=== PATIENT | male | born 1960 | race Caucasian/White ===

== ENCOUNTER 2020-12-21 02:14 | Emergency (ER) | payer MEDICARE ==
[~2020-12-21] VITALS: Ht 185.4 cm; Wt 117.9 kg
[2020-12-21] MEDS ORDERED: ZESTRIL40 M1 PO (03:07)
[2020-12-21 03:10] LABS: Calcium, Ionized (POC) 1.15 mmol/L (1.10-1.46); Chloride (POC) 102 mmol/L (98-108); Creatinine (POC) 1.1 mg/dL (0.8-1.3); Glucose (ISTAT POC) 104 mg/dL (70-99); Hemoglobin (POC) 16.3 g/dL (13.5-17.5); Potassium (POC) 3.9 mmol/L (3.5-5.5); Sodium (POC) 139 mmol/L (135-148); Total CO2 (POC) 25 mmol/L (21-32)
== END 2020-12-21 05:39 | disposition home or self-care (01) ==
LOC: ER 02:14
PROVIDERS: Emergency Medicine
DX: U07.1 COVID-19 (principal); R19.5 Other fecal abnormalities; F17.200 Nicotine dependence, unspecified, uncomplicated
CPT/HCPCS: 36415; 80047; 82272; 85014; 99283-25; A9270; M0243; Q0243

== ENCOUNTER 2021-03-29 07:16 | Emergency (ER) | payer MEDICARE ==
[~2021-03-29] VITALS: Ht 185.4 cm; Wt 124.7 kg
[~2021-03-29 07:16] MED LIST: ZESTRIL40 M1 PO
[2021-03-29] MEDS ORDERED: HYDACE10B PO (08:33)
== END 2021-03-29 08:44 | disposition home or self-care (01) ==
LOC: ER 07:16
DX: S32.2XXA Fracture of coccyx, initial encounter for closed fracture (principal); I10 Essential (primary) hypertension; F17.210 Nicotine dependence, cigarettes, uncomplicated; Z79.899 Other long term (current) drug therapy; W17.89XA Other fall from one level to another, initial encounter
CPT/HCPCS: 72170; 72220; 99283-25; A9270

== ENCOUNTER 2022-01-05 09:27 | Emergency (ER) | payer MEDICARE ==
[~2022-01-05] VITALS: Ht 185.4 cm; Wt 120.2 kg
[~2022-01-05 09:27] MED LIST changes: +HYDACE10B PO
[2022-01-05 11:07] LABS: BASOPHILS ABSOLUTE AUTO 0.14 K/mm3 (0.00-0.23); BASOPHILS PERCENT AUTO 2 % (0-2); EOSINOPHILS ABSOLUTE AUTO 0.11 K/mm3 (0.00-0.68); EOSINOPHILS PERCENT AUTO 1 % (0-6); Hematocrit 45.2 % (37.0-53.0); Hemoglobin 15.4 g/dL (13.5-17.5); IMMATURE GRAN ABSOLUTE AUTO 0.04 K/mm3 (0.00-0.10); IMMATURE GRAN PERCENT AUTO 0 % (0-1); LYMPHOCYTES ABSOLUTE AUTO 1.31 K/mm3 (0.84-5.20); LYMPHOCYTES PERCENT AUTO 14 % (21-46); MONOCYTES ABSOLUTE AUTO 0.87 K/mm3 (0.16-1.47); MONOCYTES PERCENT AUTO 9 % (4-13); Mean Corpuscular HGB 35.4 pg (26.0-34.0); Mean Corpuscular HGB Conc 34.1 g/dL (31.5-36.5); Mean Corpuscular Volume 104 fL (80-100); Mean Platelet Volume 10.3 fL (9.1-12.4); NEUTROPHILS ABSOLUTE AUTO 6.77 K/mm3 (1.96-9.15); NEUTROPHILS PERCENT AUTO 73 % (41-73); Platelet Count 267 K/mm3 (150-400); RDW Coefficient Variation 13.4 % (11.7-14.2); RDW Standard Deviation 52.1 fL (35.1-46.3); Red Blood Cell Count 4.35 M/mm3 (4.30-5.90); White Blood Cell Count 9.24 K/mm3 (4.00-11.30)
[2022-01-05 11:29] LABS: Albumin, Blood 3.8 g/dL (3.4-5.0); Bilirubin, Total 1.7 mg/dL (0.1-1.0); Bun/Creatinine Ratio 15.7 (12.0-20.0); Calcium, Blood 8.8 mg/dL (8.5-10.1); Creatinine, Blood 0.89 mg/dL (0.60-1.20); Globulin, Blood 3.8 g/dL (2.2-4.0); Potassium, Blood 4.4 mmol/L (3.5-5.5); Total Protein, Blood 7.6 g/dL (6.4-8.2)
[2022-01-05 11:43] LABS: Influenza A, PCR NEGATIVE (NEGATIVE); Influenza B, PCR NEGATIVE (NEGATIVE); Resp Syncytial Virus, PCR NEGATIVE (NEGATIVE); SARS-Cov-2 (COVID-19) PCR, MMC NEGATIVE (NEGATIVE)
== END 2022-01-05 14:15 | disposition home or self-care (01) ==
LOC: ER 09:27
PROVIDERS: Student in an Organized Health Care Education/Training Program
DX: R06.02 Shortness of breath (principal); F41.9 Anxiety disorder, unspecified; F17.210 Nicotine dependence, cigarettes, uncomplicated; F10.20 Alcohol dependence, uncomplicated; I10 Essential (primary) hypertension; Z79.899 Other long term (current) drug therapy; Z20.822 Contact with and (suspected) exposure to COVID-19
CPT/HCPCS: 0241U; 71046; 80053; 84484; 85025; 93005; 93010

== ENCOUNTER 2022-01-20 17:44 | Inpatient (IN) | payer MEDICARE ==
[~2022-01-20] VITALS: Ht 185.4 cm; Wt 122.5 kg
[2022-01-20 18:18] LABS: BASOPHILS PERCENT AUTO 1 % (0-2); EOSINOPHILS ABSOLUTE AUTO 0.06 K/mm3 (0.00-0.68); EOSINOPHILS PERCENT AUTO 1 % (0-6); Hemoglobin 14.1 g/dL (13.5-17.5); IMMATURE GRAN ABSOLUTE AUTO 0.03 K/mm3 (0.00-0.10); IMMATURE GRAN PERCENT AUTO 0 % (0-1); LYMPHOCYTES ABSOLUTE AUTO 1.27 K/mm3 (0.84-5.20); LYMPHOCYTES PERCENT AUTO 17 % (21-46); MONOCYTES ABSOLUTE AUTO 0.89 K/mm3 (0.16-1.47); MONOCYTES PERCENT AUTO 12 % (4-13); Mean Corpuscular HGB 36.2 pg (26.0-34.0); Mean Corpuscular HGB Conc 34.4 g/dL (31.5-36.5); Mean Corpuscular Volume 105 fL (80-100); Mean Platelet Volume 10.8 fL (9.1-12.4); NEUTROPHILS ABSOLUTE AUTO 5.02 K/mm3 (1.96-9.15); NEUTROPHILS PERCENT AUTO 68 % (41-73); Platelet Count 253 K/mm3 (150-400); RDW Coefficient Variation 13.5 % (11.7-14.2); RDW Standard Deviation 52.7 fL (35.1-46.3); White Blood Cell Count 7.37 K/mm3 (4.00-11.30)
[2022-01-20 18:34] LABS: Albumin, Blood 3.3 g/dL (3.4-5.0); Bilirubin, Total 1.3 mg/dL (0.1-1.0); Bun/Creatinine Ratio 19.8 (12.0-20.0); Calcium, Blood 9.1 mg/dL (8.5-10.1); Creatinine, Blood 1.01 mg/dL (0.60-1.20); Globulin, Blood 3.3 g/dL (2.2-4.0); Potassium, Blood 4.5 mmol/L (3.5-5.5); Total Protein, Blood 6.6 g/dL (6.4-8.2)
[2022-01-20] MEDS ORDERED: LISI20 PO (20:21)
[2022-01-20 20:39] LABS: Magnesium, Blood 2.1 mg/dL (1.6-2.4); Thyroid Stimulating Hormone 1.2 uIU/mL (0.360-4.800)
[2022-01-20 21:00] LABS: Influenza A, PCR NEGATIVE (NEGATIVE); Influenza B, PCR NEGATIVE (NEGATIVE); Resp Syncytial Virus, PCR NEGATIVE (NEGATIVE); SARS-Cov-2 (COVID-19) PCR, MMC NEGATIVE (NEGATIVE)
--- NOTE | 2022-01-21 05:17 | NUR ---
NEW ADMIT Patient admitted for BLE edema, SOB, Cough. +2 pitting edema BLE, ABD distended, SOB. Patient reports pain, "tightness" in BLE. Tele in place, Afib tachycardic. Patient anxious, awake most of the night. Reported lately he has felt too panicked, too sleep, d/t SOB, he cannot lay flat in bed. Does not have a recliner at home. Patient quit drinking 1 week ago, no s/sx of alcohol withdrawal. Patient anxious tonight d/t SOB. Ativan given for anxiety, PRN effective patient went to sleep. Systolic BP>150 & Diastolic BP>110s. IV Hydralazine given PRN. Troponins, BNP elevated on admission. ECHO, EKG ordered today.
[2022-01-21 05:45] LABS: Bun/Creatinine Ratio 21.8 (12.0-20.0); Calcium, Blood 8.3 mg/dL (8.5-10.1); Creatinine, Blood 0.82 mg/dL (0.60-1.20); Potassium, Blood 3.9 mmol/L (3.5-5.5)
--- NOTE | 2022-01-21 17:40 | NUR ---
SHIFT SUMMARY PLEASANT 61-YEAR-OLD MALE, A&O X4, INDEPENDENT, THOUGH BEDREST WITH BATHROOM MENTIONED FOR LEG EDEMA. SCDS PLACED THIS SHIFT. PTN DID HAVE HR INTO 130'S STARTING 10 PM YESTERDAY, AND REPORTED TO BE 110-[address] AMIN CONTACTED, MEDICATION CHANGES MADE. PTN DID GET SOME AGITATED THIS SHIFT WITH COMPLAINT OF OATES, AND GIVEN TYLENOL, WHICH SEEMED TO RESOLVE IT. ALSO GIVEN ANTI-ANXIETY MEDICATION NEEDED. CONTINUE TO MONITOR.
[2022-01-22 05:48] LABS: Bun/Creatinine Ratio 22.8 (12.0-20.0); Calcium, Blood 8.8 mg/dL (8.5-10.1); Creatinine, Blood 0.84 mg/dL (0.60-1.20); Potassium, Blood 3.8 mmol/L (3.5-5.5)
--- NOTE | 2022-01-22 06:07 | NUR ---
SHIFT LUISLINDAJACQUEILNLesley 61 YR M ADMITTED ON 01/20/22 FOR CHF. NO ACUTE CHANGES THIS SHIFT. PT IS BECOMING INCREASINGLY AGITATED AND IS COMPLAINING AND CURSING ABOUT HAVING TO WEAR THE TELE MONITOR AND SCD'S. HE INSISTED ON TAKING THE SCD'S OFF WHEN HE WENT TO BED AT NIGHT AND THIS NURSE ADVISED HIM THAT IT WOULD BE BENEFICIAL FOR HIM TO CONTINUE WEARING THEM IN THE A.M. HE STATES THAT HE IS FEELING CLOSTROPHOBIC FROM BEING IN HIS ROOM ALL THE TIME. HE WAS GIVEN ATIVAN FOR ANXIETY PER EMAR.
--- NOTE | 2022-01-22 13:35 | NUR ---
Pt resting in bed labored breathing, ahed and pale some trouble tracking conversation due to symptoms and discomfort. pt has been having more headaches and anexiety, much more abdominal pain and distress. He has been having some chest pains at home. he dienies having falls. He is very aggitated and fearful and uncomfortable. We had therputic onversation reassured him he is safe and we will help him through. updated physician and nursing on his needs. will follow up. He is to ill and distrught to address a polst or plan of care . Did briefly review getting him home health he is ok with [facility] and he is willing to go to [facility] for a primary care.
--- NOTE | 2022-01-22 16:46 | NUR ---
SHIFT SUMMARY PT SLEEPING AT START OF SHIFT. WOKE EASILY FOR CARE. USING URINAL AT BS AT START OF SHIFT D/T WEAKNESS AND SOB. PT UP TO BTHRM EACH TIME LATER IN THE DAY. PT ADMITTED WITH NEW ONSET OF A-FIB WITH RVR AND CHF. PT RECEIVING LASIX. DR AMIN IN TO SEE PT THIS AM. NEW ORDERS PLACED. MEDICATIONS ADJUSTED AND FLUID RESTRICTION ADDED. PALLIATIVE CARE RN IN TO SEE PT A FEW TIMES TODAY, EVEN BRINGING PT SOME READING GLASSES. PT MEDICATED PER EMAR AND RESTED WELL THIS AFTERNOON. ADDITIONAL LASIX AND BP MEDS TO BE GIVEN THIS EVENING. RESTING QUIETLY AT THIS TIME. CALL LT IN REACH.
--- NOTE | 2022-01-23 05:59 | NUR ---
NIGHTSHIFT SUMMARY Patient AOx4, independent to bathroom. Fluid restriction ordered, patient only had 200mL fluid left to drink this shift. Patient reported OATES and anxiety, Tylenol & Ativan given, PRN effective. BLE edematous, pt reports tightness/discomfort. Patient slept comfortably, arouses easily to voice. Tele Afib rhythm- 105bpm. Librium given once this morning, PRN effective. Vitals stable, saturations 90% RA.
--- NOTE | 2022-01-23 14:51 | NUR ---
SHIFT SUMMARY PT RESTING QUIETLY DURING SHIFT REPORT, BUT WOKE SHORTLY AFTER, GETTING UP TO CHAIR AT BS. PT SEEMS TO BE A LITTLE BETTER AGAIN TODAY, THAN YESTERDAY. IMPROVING SLOWLY. PT STATED THAT HE IS BREATHING ALOT BETTER THAN WHEN HE FIRST CAME IN. BP AND HR STILL ELEVATED; SEE CHART. DR ALLISON IN TO SEE PT THIS AM; MEDICATIONS ADJUSTED AGAIN TODAY. PT WANTING TO GO HOME TODAY, BUT WILL STAY FOR AT LEAST ANOTHER DAY OR TWO, PER DR ALLISON. PT REMAINS INDEPENDENT IN RM AND TO BTHRM. REMAINS ON FLUID RESTRICTION; SEE ORDERS. DENIES FURTHER NEEDS. CALL LT IN REACH.
--- NOTE | 2022-01-24 05:28 | NUR ---
SHIFT SUMMARY PT AOX3. FORGETFUL AT TIMES. NO ACUTE CHANGES. PT HAS MILD EDEMA BLE. VSS. DENIES CHEST PAIN. MILD SOB WITH COUGH. LUNGS HAVE FINE CRACKLES. ENC DEEP BREATHING EXERCISE. TELE: AFIB W/ BBB, 103. FLUID RESTRICTION 1L DAILY. PROVIDE PT EDUCATION WITH DISEASE PROCESS AND CURRENT ILLNESS. TALKED ABOUT LIFE STYLE CHANGE AND DIET. INDEPENDENT IN ROOM . CALL LIGHT WITHIN REACH. WILL PROVIDE REPORT TO ONCOMING NURSE.
[2022-01-24 05:31] LABS: Hematocrit 44.2 % (37.0-53.0); Hemoglobin 14.7 g/dL (13.5-17.5); Mean Corpuscular HGB 35.1 pg (26.0-34.0); Mean Corpuscular HGB Conc 33.3 g/dL (31.5-36.5); Mean Corpuscular Volume 106 fL (80-100); Platelet Count 278 K/mm3 (150-400); RDW Coefficient Variation 13.1 % (11.7-14.2); RDW Standard Deviation 51.8 fL (35.1-46.3); Red Blood Cell Count 4.19 M/mm3 (4.30-5.90); White Blood Cell Count 9.26 K/mm3 (4.00-11.30)
[2022-01-24 05:58] LABS: Albumin, Blood 3.1 g/dL (3.4-5.0); Albumin/Globulin Ratio 0.9 (0.8-1.8); Bilirubin, Total 1.2 mg/dL (0.1-1.0); Calcium, Blood 8.8 mg/dL (8.5-10.1); Globulin, Blood 3.5 g/dL (2.2-4.0); Magnesium, Blood 1.9 mg/dL (1.6-2.4); Potassium, Blood 3.6 mmol/L (3.5-5.5); Total Protein, Blood 6.6 g/dL (6.4-8.2)
[2022-01-24] MEDS ORDERED: NORVASC5 MG PO (11:45)
[2022-01-24] MEDS ORDERED: BUSP10 PO (11:45)
[2022-01-24] MEDS ORDERED: MIRT30 PO (11:46)
[2022-01-24] MEDS ORDERED: NICO21TP TOP (11:46)
[2022-01-24] MEDS ORDERED: METO50ER PO (11:46)
[2022-01-24] MEDS ORDERED: XARELTO20 MG PO (11:47)
[2022-01-24] MEDS ORDERED: SPIR25 PO (11:47)
[2022-01-24] MEDS ORDERED: FURO20 PO (11:47)
[2022-01-24] MEDS ORDERED: METO25 PO (11:48)
--- NOTE | 2022-01-24 13:43 | NUR ---
SHIFT SUMMARY- PT IRRITATBLE ABOUT D/C PACE. VSS. INDEPENDANT IN ROOM. CALL LIGHT IN REACH. D/C PT LEFT WITH EDUCATION PACKET, MEDICATION PAPERWORK, AND ALL BELONGINGS IN HAND. PT LEFT ON FOOT REFUSED WHEELCHAIR PROVIDED. PT PULLED OWN IV PRIOR TO RN REMOVAL. RN PLACED BANDAGE PRECAUTION. PT D/C TO HOME.
== END 2022-01-24 12:20 | disposition home or self-care (01) | DRG 291 ==
LOC: ER 17:44 → MEDS 20:23
PROVIDERS: Emergency Medicine; Internal Medicine; ADMIT Hospitalist
PROC: HZ2ZZZZ Detoxification Services for Substance Abuse Treatment (ICD-10-PCS; principal; 2022-01-20)
DX: I11.0 Hypertensive heart disease with heart failure (principal); I50.23 Acute on chronic systolic (congestive) heart failure; F10.239 Alcohol dependence with withdrawal, unspecified; I48.0 Paroxysmal atrial fibrillation; Z20.822 Contact with and (suspected) exposure to COVID-19; F17.210 Nicotine dependence, cigarettes, uncomplicated; F41.1 Generalized anxiety disorder; J44.9 Chronic obstructive pulmonary disease, unspecified; Z71.41 Alcohol abuse counseling and surveillance of alcoholic; Z79.899 Other long term (current) drug therapy
CPT/HCPCS: 0241U; 36415; 71046; 71275; 74175; 80048; 80053; 83690; 83735; 83880; 84443; 84484; 85025; 85027; 93005; 93010; 93306; 94760; 96374; 96375; 99285-25; A9270; J0360; J1940; J2405; Q9967

== ENCOUNTER 2022-05-22 05:07 | Inpatient (IN) | payer MEDICARE ==
[~2022-05-22] VITALS: Ht 175.3 cm; Wt 124.7 kg
[~2022-05-22 05:07] MED LIST changes: +BUSP10 PO; +FURO20 PO; +LISI20 PO; +METO25 PO; +METO50ER PO; +MIRT30 PO; +NICO21TP TOP; +NORVASC5 MG PO; +SPIR25 PO; +XARELTO20 MG PO
[2022-05-22 05:40] LABS: BASOPHILS ABSOLUTE AUTO 0.12 K/mm3 (0.00-0.23); BASOPHILS PERCENT AUTO 1 % (0-2); EOSINOPHILS ABSOLUTE AUTO 0.14 K/mm3 (0.00-0.68); EOSINOPHILS PERCENT AUTO 2 % (0-6); Hematocrit 32.4 % (37.0-53.0); Hemoglobin 10.8 g/dL (13.5-17.5); IMMATURE GRAN ABSOLUTE AUTO 0.09 K/mm3 (0.00-0.10); IMMATURE GRAN PERCENT AUTO 1 % (0-1); LYMPHOCYTES PERCENT AUTO 25 % (21-46); MONOCYTES ABSOLUTE AUTO 1.01 K/mm3 (0.16-1.47); MONOCYTES PERCENT AUTO 11 % (4-13); Mean Corpuscular HGB 33.4 pg (26.0-34.0); Mean Corpuscular HGB Conc 33.3 g/dL (31.5-36.5); Mean Corpuscular Volume 100 fL (80-100); Mean Platelet Volume 9.6 fL (9.1-12.4); NEUTROPHILS ABSOLUTE AUTO 5.79 K/mm3 (1.96-9.15); NEUTROPHILS PERCENT AUTO 61 % (41-73); NRBC ABSOLUTE 0.02 K/mm3 (0.00-0.02); NRBC Auto 0.2 /100 WBC (0.0-0.2); Platelet Count 355 K/mm3 (150-400); RDW Coefficient Variation 16.5 % (11.7-14.2); RDW Standard Deviation 58.4 fL (35.1-46.3); Red Blood Cell Count 3.23 M/mm3 (4.30-5.90); White Blood Cell Count 9.55 K/mm3 (4.00-11.30)
[2022-05-22 06:01] LABS: Alanine Aminotransfer (ALT/SGP 39 U/L (12-78); Albumin, Blood 2.7 g/dL (3.4-5.0); Albumin/Globulin Ratio 0.6 (0.8-1.8); Alk Phos 114 U/L (50-136); Anion Gap 6 mmol/L (6-16); Aspartate Aminotrans (AST/SGOT 33 U/L (12-37); Bilirubin, Total 0.8 mg/dL (0.1-1.0); Blood Urea Nitrogen 22 mg/dL (8-24); Bun/Creatinine Ratio 23.4 (12.0-20.0); CO2, Blood 26 mmol/L (21-32); Chloride, Blood 106 mmol/L (98-108); Creatinine, Blood 0.94 mg/dL (0.60-1.20); Ethanol (Alcohol), Blood, Med <3 mg/dL; Globulin, Blood 4.5 g/dL (2.2-4.0); Glomerular Filtration Rate 92 (60-); Glucose, Blood 112 mg/dL (70-99); Magnesium, Blood 2.1 mg/dL (1.6-2.4); Potassium, Blood 3.8 mmol/L (3.5-5.5); Sodium, Blood 138 mmol/L (136-145); Total Protein, Blood 7.2 g/dL (6.4-8.2)
--- NOTE | 2022-05-22 17:46 | NUR ---
SHIFT SUMMARY PATIENT ADMITTED AT 0930 FROM ER. PATIENT SETTLED INTO ROOM. PATIENT ORIENTED TO CALL LIGHT AND TV CONTROL. ADMISSION COMPLETE. PATIENT DENIES PAIN, NAUSEA, AND SHORTNESS OF BREATH. PATIENT IS IND IN THE ROOM. PATIENT HAS BILAT LE EDEMA. ECHO WAS COMPLETE THIS SHIFT. PATIENT IS EATING AND DRINKING WELL. PATIENT IS PLEASANT AND COOPERATIVE WITH CARE.
--- NOTE | 2022-05-23 03:34 | NUR ---
SHIFT SUMMARY PATIENT IS ALERT AND ORIENTED. PATIENT HAS NOT HAD ANY ACUTE EVENTS THIS SHIFT. PATIENT HAS BEEN PLEASENT AND COOPERATIVE THIS SHIFT. VITAL SIGNS REVIEWED. PATIENT HAS NOT COMPLAINED OF PAIN, NAUSEA, SOB OR VOMITTING THIS SHIFT. BED IN LOCKED AND LOWEST POSITION. CALL LIGHT IN PLACE. WILL MONITOR UNTIL SHIFT CHANGE.
[2022-05-23 05:42] LABS: BASOPHILS ABSOLUTE AUTO 0.12 K/mm3 (0.00-0.23); BASOPHILS PERCENT AUTO 1 % (0-2); EOSINOPHILS ABSOLUTE AUTO 0.16 K/mm3 (0.00-0.68); EOSINOPHILS PERCENT AUTO 2 % (0-6); Hematocrit 34.2 % (37.0-53.0); Hemoglobin 11.4 g/dL (13.5-17.5); IMMATURE GRAN ABSOLUTE AUTO 0.06 K/mm3 (0.00-0.10); IMMATURE GRAN PERCENT AUTO 1 % (0-1); LYMPHOCYTES ABSOLUTE AUTO 2.02 K/mm3 (0.84-5.20); LYMPHOCYTES PERCENT AUTO 22 % (21-46); MONOCYTES PERCENT AUTO 10 % (4-13); Mean Corpuscular HGB 32.9 pg (26.0-34.0); Mean Corpuscular HGB Conc 33.3 g/dL (31.5-36.5); Mean Corpuscular Volume 99 fL (80-100); Mean Platelet Volume 9.2 fL (9.1-12.4); NEUTROPHILS ABSOLUTE AUTO 5.87 K/mm3 (1.96-9.15); NEUTROPHILS PERCENT AUTO 64 % (41-73); Platelet Count 355 K/mm3 (150-400); RDW Coefficient Variation 16.6 % (11.7-14.2); RDW Standard Deviation 57.3 fL (35.1-46.3); Red Blood Cell Count 3.47 M/mm3 (4.30-5.90); White Blood Cell Count 9.13 K/mm3 (4.00-11.30)
[2022-05-23 06:10] LABS: Albumin/Globulin Ratio 0.7 (0.8-1.8); Bilirubin, Total 1.7 mg/dL (0.1-1.0); Bun/Creatinine Ratio 22.5 (12.0-20.0); Calcium, Blood 8.7 mg/dL (8.5-10.1); Creatinine, Blood 0.93 mg/dL (0.60-1.20); Globulin, Blood 4.2 g/dL (2.2-4.0); Magnesium, Blood 2.2 mg/dL (1.6-2.4); Potassium, Blood 3.9 mmol/L (3.5-5.5); Total Protein, Blood 7.2 g/dL (6.4-8.2)
--- NOTE | 2022-05-23 09:45 | NUR ---
PATIENTS AGGRESSION INCREASED, PACING IN HALLS SAYSING "FUCK THIS PLACE" PATIENT EDUCATED ON MEDICAL NEEDS TO STAY AT THE HOSPITAL AND AMA OPTIONS. REPORTED TO BLACKING WHEEL TENDER PHIL AND DR INTERIANO. PATIENT REPORTS HE IS STAYING NOW. PATIENT CONITNUES TO ARGUE ABOUT CARE AND SAYS "I DONT NEED TO BE HERE". PATIENT SLAMBED DOOR SHUT
--- NOTE | 2022-05-23 11:39 | NUR ---
PATIENT RESTING IN BED, NO DISTRESS, RESPIRATIONS EVEN AND NONLABORED
--- NOTE | 2022-05-23 16:12 | NUR ---
PATIENT WAITING AT DOOR, "WHERE IS THE LIQUID MEDICATIONS i WAS SOPOSE TO HAVE" PATIENT EDUCATED BY THIS RN DONATO THAT MEDICATION WAS GIVEN IN THE PO FORM AND THAT MORE DIURETICS WILL BE GIVEN AT 1800, PATIENT SLAMBED THE DOOR, CONTACTED CHARGE NURSE, PATIENT REFUSED TO SUGN THE AMA PAPER WORK, PATIENT ALREADY PULLED OUT IV, IV INTACT, TANO RN WITNESSED REFUSAL TO SIGN AMA, IV OUT AND PATIENT UNCONSOLABLE. PATIENT AMBULATED OUT OF HOSPITAL, STEADY GAIT
--- NOTE | 2022-05-23 16:16 | NUR ---
DR FRAZIER NOTIFIED, SECURITY NOTIFIED PATIENT LEFT PERSONAL BELONGING AND THEY ARE AT THE ACC DESK.
== END 2022-05-23 16:05 | disposition left against medical advice (07) | DRG 291 ==
LOC: ER 05:07 → MEDS 07:50
PROVIDERS: Emergency Medicine; ADMIT Student in an Organized Health Care Education/Training Program
DX: I11.0 Hypertensive heart disease with heart failure (principal); I50.23 Acute on chronic systolic (congestive) heart failure; I48.20 Chronic atrial fibrillation, unspecified; K76.0 Fatty (change of) liver, not elsewhere classified; F17.210 Nicotine dependence, cigarettes, uncomplicated; I27.20 Pulmonary hypertension, unspecified; I08.2 Rheumatic disorders of both aortic and tricuspid valves; F10.20 Alcohol dependence, uncomplicated; I71.21 Aneurysm of the ascending aorta, without rupture; Z96.612 Presence of left artificial shoulder joint; Z96.611 Presence of right artificial shoulder joint; Z23 Encounter for immunization; Z79.01 Long term (current) use of anticoagulants; Z79.811 Long term (current) use of aromatase inhibitors; Z79.899 Other long term (current) drug therapy; Z91.14 Patient's other noncompliance with medication regimen; Z71.6 Tobacco abuse counseling
CPT/HCPCS: 36415; 71045; 80053; 83735; 83880; 84484; 85025; 90686; 93005; 93010; 93308; 93321; 94760; 96374; 98960; 99285-25; A9270; G0480; J1940

== ENCOUNTER 2022-09-10 20:25 | Inpatient (IN) | payer MEDICARE, OTHER ==
[~2022-09-10] VITALS: Ht 185.4 cm; Wt 127.1 kg
[2022-09-10 21:22] LABS: BASOPHILS ABSOLUTE AUTO 0.11 K/mm3 (0.00-0.23); BASOPHILS PERCENT AUTO 1 % (0-2); EOSINOPHILS ABSOLUTE AUTO 0.16 K/mm3 (0.00-0.68); EOSINOPHILS PERCENT AUTO 2 % (0-6); Hematocrit 46.7 % (37.0-53.0); Hemoglobin 16.2 g/dL (13.5-17.5); IMMATURE GRAN ABSOLUTE AUTO 0.06 K/mm3 (0.00-0.10); IMMATURE GRAN PERCENT AUTO 1 % (0-1); LYMPHOCYTES ABSOLUTE AUTO 2.32 K/mm3 (0.84-5.20); LYMPHOCYTES PERCENT AUTO 28 % (21-46); MONOCYTES ABSOLUTE AUTO 0.88 K/mm3 (0.16-1.47); MONOCYTES PERCENT AUTO 11 % (4-13); Mean Corpuscular HGB 32.9 pg (26.0-34.0); Mean Corpuscular HGB Conc 34.7 g/dL (31.5-36.5); Mean Corpuscular Volume 95 fL (80-100); NEUTROPHILS ABSOLUTE AUTO 4.77 K/mm3 (1.96-9.15); NEUTROPHILS PERCENT AUTO 58 % (41-73); Platelet Count 239 K/mm3 (150-400); RDW Coefficient Variation 12.4 % (11.7-14.2); RDW Standard Deviation 42.7 fL (35.1-46.3); Red Blood Cell Count 4.92 M/mm3 (4.30-5.90)
[2022-09-10 21:51] LABS: Alanine Aminotransfer (ALT/SGP 28 U/L (12-78); Albumin, Blood 3.5 g/dL (3.4-5.0); Albumin/Globulin Ratio 0.9 (0.8-1.8); Alk Phos 73 U/L (50-136); Anion Gap 5 mmol/L (6-16); Aspartate Aminotrans (AST/SGOT 27 U/L (12-37); Bilirubin, Total 1.1 mg/dL (0.1-1.0); Blood Urea Nitrogen 27 mg/dL (8-24); Bun/Creatinine Ratio 26.7 (12.0-20.0); CO2, Blood 30 mmol/L (21-32); Calcium, Blood 9.3 mg/dL (8.5-10.1); Chloride, Blood 104 mmol/L (98-108); Creatinine, Blood 1.01 mg/dL (0.60-1.20); Ethanol (Alcohol), Blood, Med <3 mg/dL; Globulin, Blood 4.1 g/dL (2.2-4.0); Glomerular Filtration Rate 84 (60-); Glucose, Blood 101 mg/dL (70-99); Potassium, Blood 4.4 mmol/L (3.5-5.5); Sodium, Blood 139 mmol/L (136-145); Total Protein, Blood 7.6 g/dL (6.4-8.2)
[2022-09-10 23:33] LABS: U Amphetamine Screen Not Detected; U Barbituate Screen Not Detected; U Benzodiazapine Screen Not Detected; U Buprenorphine Screen Not Detected; U Cannabinoids Screen DETECTED; U Cocaine Screen Not Detected; U Methadone Screen Not Detected; U Methamphetamine Screen Not Detected; U Opiates Screen Not Detected; U Oxycodone Screen Not Detected; U Phencyclidine Screen Not Detected; U Propoxyphene Screen Not Detected
[2022-09-11 00:10] VITALS: BP 128/111
[2022-09-11 01:51] LABS: CHOL/HDL RATIO 6.2; Cholesterol 217 mg/dL (50-200); HDL Cholesterol 35 mg/dL (>39); LDL/HDL RATIO 4.3; Low Density Lipoprotein Chol 149 mg/dL (0-110); Triglycerides 166 mg/dL (30-160); Very Low Density Lipoprot Chol 33 mg/dL (6-32)
[2022-09-11 04:30] VITALS: BP 132/85
[2022-09-11 06:01] LABS: BASOPHILS ABSOLUTE AUTO 0.11 K/mm3 (0.00-0.23); BASOPHILS PERCENT AUTO 1 % (0-2); EOSINOPHILS ABSOLUTE AUTO 0.12 K/mm3 (0.00-0.68); EOSINOPHILS PERCENT AUTO 1 % (0-6); Hematocrit 46.4 % (37.0-53.0); Hemoglobin 15.8 g/dL (13.5-17.5); IMMATURE GRAN ABSOLUTE AUTO 0.04 K/mm3 (0.00-0.10); IMMATURE GRAN PERCENT AUTO 1 % (0-1); LYMPHOCYTES ABSOLUTE AUTO 2.59 K/mm3 (0.84-5.20); LYMPHOCYTES PERCENT AUTO 30 % (21-46); MONOCYTES ABSOLUTE AUTO 0.88 K/mm3 (0.16-1.47); MONOCYTES PERCENT AUTO 10 % (4-13); Mean Corpuscular HGB 32.2 pg (26.0-34.0); Mean Corpuscular HGB Conc 34.1 g/dL (31.5-36.5); Mean Corpuscular Volume 95 fL (80-100); Mean Platelet Volume 10.4 fL (9.1-12.4); NEUTROPHILS ABSOLUTE AUTO 5.02 K/mm3 (1.96-9.15); NEUTROPHILS PERCENT AUTO 57 % (41-73); Platelet Count 220 K/mm3 (150-400); RDW Coefficient Variation 12.5 % (11.7-14.2); RDW Standard Deviation 43.2 fL (35.1-46.3); Red Blood Cell Count 4.91 M/mm3 (4.30-5.90); White Blood Cell Count 8.76 K/mm3 (4.00-11.30)
[2022-09-11 06:36] LABS: Albumin, Blood 3.4 g/dL (3.4-5.0); Albumin/Globulin Ratio 0.9 (0.8-1.8); Bilirubin, Total 1.2 mg/dL (0.1-1.0); Bun/Creatinine Ratio 26.8 (12.0-20.0); Calcium, Blood 9.1 mg/dL (8.5-10.1); Creatinine, Blood 0.97 mg/dL (0.60-1.20); Globulin, Blood 3.7 g/dL (2.2-4.0); Potassium, Blood 3.9 mmol/L (3.5-5.5); Total Protein, Blood 7.1 g/dL (6.4-8.2)
--- NOTE | 2022-09-11 07:10 | NUR ---
SHIFT SUMMARY PT ARRIVED TO PCU AT 0000. PT ABLE TO TRANSFER SELF W/MINIMAL ASSISTANCE TO HOSPITAL BED. VSS THROUGHOUT SHIFT. PT HAS R SIDE DEFICIT IN UPPER AND LOWER EXTREMITY; HE DOES HAVE SOME STRENGTH AND MOBILITY BUT IS NOTICEABLY WEAKER THAN THE L SIDE. PT IRRITATED AND ANXIOUS THROUGHOUT THE SHIFT. PT PULLED IV AROUND 0300 AND REFUSED FOR ANOTHER TO BE PLACED. EDUCATION PROVIDED. PT REFUSED TO WEAR O2 WHEN SPO2 DECREASED. PT EDUCATED ON THIS WELL. PT REPORTS R SHOULDER PAIN, RESIDENT NOTIFIED. ONE TIME DOES OF 100 MG OF GABAPENTIN ORDERED. Q4 NEURO CHECKS COMPLETED, NO CHANGES. PT DENIES CP OR PRESSURE DURING SHIFT. DENIES N/V/DIZZINES. PT DOES REPORT FEELING "SOME" SOB ESPECIALLY WHEN GETTING UP. PT SOUNDS WHEEZY; PROVIDER NOTIFIED. ORDERS FOR COPD/BD PROTOCOL. PT DECLINED USE OF O2 STATED ABOVE. NO ACUTE CHANGES FROM ADNIT. PT SCHEDULED FOR MRI TODAY. PT NPO PER ORDERS. ALTHOUGH WHEN PT TOOK MEDICATION W/WATER. HE TOLERATED IT WELL. BUT SINCE HAS BEEN NPO. WILL UPDATE ONCOMING AMELIA
[2022-09-11 07:52] VITALS: BP 133/100
--- NOTE | 2022-09-11 12:06 | NUR ---
SHORTLY AFTER ASSUMED CARE WITH AMELIA MANCERA PT AGITATED AND STATING NO BODY CAN TELL HIM WHAT IS WRONG AND MIGHT WELL LEAVE. PULLED IV OUT DURING THE NIGHT, PULLED OF TELE MONITOR. UPSET THAT SPEECH THERAPY WAS ORDERED. SPEECH ATTEMPTING TO WORK WITH PT, AGITATION INCREASED AND WAS WALKING AROUND ROOM AGAIN STATING THAT WAS GOING TO LEAVE. DR. MARIE NOTIFIED, AGREED WITH DR. MARIE TO HAVE ECHO AND PT/OT EVAL. SHORTLY AFTER ECHO PT GETS DRESSED AND AGAIN STATES IS GOING TO LEAVE, DEPARTURE CLERK NOTIFIED. PT STATES WILL NOT SIGN AMA PAPERWORK. WALKED FROM [facility] WITHOUT DIFFICULTY. DR. MARIE NOTIFIED.
== END 2022-09-11 11:11 | disposition left against medical advice (07) | DRG 65 ==
LOC: ER 20:25 → PCU 23:45
PROVIDERS: Family Medicine; Student in an Organized Health Care Education/Training Program; ADMIT Internal Medicine
DX: I63.9 Cerebral infarction, unspecified (principal); G81.91 Hemiplegia, unspecified affecting right dominant side; I50.22 Chronic systolic (congestive) heart failure; I11.0 Hypertensive heart disease with heart failure; I48.91 Unspecified atrial fibrillation; R91.1 Solitary pulmonary nodule; E78.5 Hyperlipidemia, unspecified; Z53.29 Procedure and treatment not carried out because of patient's decision for other reasons; I71.21 Aneurysm of the ascending aorta, without rupture; K76.0 Fatty (change of) liver, not elsewhere classified; R20.0 Anesthesia of skin; R29.705 NIHSS score 5; N28.9 Disorder of kidney and ureter, unspecified; Z96.611 Presence of right artificial shoulder joint; F17.210 Nicotine dependence, cigarettes, uncomplicated; Z79.01 Long term (current) use of anticoagulants; Z79.899 Other long term (current) drug therapy
CPT/HCPCS: 36415; 70450; 70496; 70498; 71045; 80053; 80061; 82947; 84484; 85025; 85730; 92610; 93005; 93010; 93306; 94760; 99285-25; A9270; G0480; Q9967